=== PATIENT | female | born 1945 ===

== ENCOUNTER 2021-06-18 03:51 | Inpatient (IN) | payer OTHER ==
[~2021-06-18] VITALS: Ht 160 cm; Wt 90.2 kg
[2021-06-18 05:53] LABS: Basophils # (auto) 0 10 ^3/uL (0-0.2); Basophils % (auto) 0.4 % (0.0-2.0); Eosinophils # (auto) 0 10 ^3/uL (0-0.8); Hematocrit 38.8 % (36.0-46.0); Hemoglobin 12.8 g/dL (12.2-16.2); Lymphocytes # (auto) 0.4 10 ^3/uL (0.4-5.4); Lymphocytes % (auto) 5.9 % (10.0-50.0); Mean Corpuscular Hemoglobin 28.4 pg (28.0-32.0); Monocytes # (auto) 0.7 10 ^3/uL (0-1.3); Monocytes % (auto) 10.3 % (0.0-12.0); Neutrophils # (auto) 5.5 10 ^3/uL (1.6-8.6); Neutrophils % (auto) 83.4 % (37.0-80.0); Nucleated Red Blood Cells % 0.1 %; Red Cell Distribution Width 14.8 % (11.8-14.3); White Blood Cell 6.6 10^3/uL (4.4-10.8)
[2021-06-18] MEDS ORDERED: KETOROLAC TROMETH 30 MG/ML 1ML VIAL IV ONE (05:55)
[2021-06-18 06:09] LABS: Albumin 3.4 g/dL (3.4-5.0); Calcium 8.9 mg/dL (8.5-10.1); Magnesium 2.8 mg/dL (1.6-2.6); Potassium 4.2 mmol/L (3.5-5.1)
[2021-06-18 06:15] LABS: BUN/Creatinine Ratio 23.1; Bilirubin, Total 0.5 mg/dL (0.2-1.0); Total Protein 7.6 g/dL (6.4-8.2)
[2021-06-18] MEDS ORDERED: DEXTROSE 50% SYRINGE 50 ML IV ONE (06:27)
[2021-06-18] MEDS ORDERED: DEXTROSE (50%) 50ML SYRG IV ONE ×2 (06:45→15:15)
[2021-06-18 07:01] LABS: Urine Bacteria MANY /hpf (None Seen); Urine Blood 2+ /uL (Negative); Urine Budding Yeast OCCASIONAL /hpf (None Seen); Urine Mucus FEW (None Seen); Urine WBC 19 /hpf (0 - 5); Urine WBC Clumps PRESENT /hpf (None Seen)
[2021-06-18] MEDS ORDERED: HEPARIN SODIUM (PORCINE) 5000 UNITS/ML 1ML VIAL IV ONE (10:30)
[2021-06-18] MEDS ORDERED: MORPHINE SULFATE 4 MG/ML SYR/VIAL IV ONE (10:30)
[2021-06-18] MEDS ORDERED: ONDANSETRON HCL 4 MG/2 ML VIAL IV ONE (10:30)
[2021-06-18] MEDS ORDERED: cefTRIAXone 1GM/50ML D5W 50 ML IV ONE (11:30)
[2021-06-18] MEDS ORDERED: AZITHROMYCIN 500MG/ 250ML 250 ML IV ONE (11:30)
[2021-06-18] MEDS ORDERED: NITROGLYCERIN 0.4 MG SL TAB SL PRN (12:45)
[2021-06-18] MEDS ORDERED: ACETAMINOPHEN 325 MG TAB PO PRN (12:45)
[2021-06-18] MEDS ORDERED: D5W/SOD CHLO 0.9% 1,000 ML IV ONE (12:45)
[2021-06-18] MEDS ORDERED: HEPARIN 1,000 UNITS/ml 1ML VIAL IV ONE (13:45)
[2021-06-18] MEDS: MORPHINE SULFATE 4 MG/ML SYR/VIAL IV PRN (13:56)
[2021-06-18 14:32] LABS: INR 1.05 (0.9-1.15); Partial Thromboplastin Time 33.3 sec (23.6-33.0)
[2021-06-18] MEDS: HEPARIN DRIP/D5W 100UNITS/ML 250 ML IV SCH (14:41)
[2021-06-18] MEDS ORDERED: DEXTROSE 10% 1,000 ML IV ONE (15:15)
[2021-06-18] MEDS: CHOLECALCIFEROL (VITD3) 2,000 UNIT CAP/TAB PO SCH (16:35)
[2021-06-18] MEDS: DexAMETHasone SOD PHOS 10MG/1ML VIAL INJ IV SCH (16:35)
[2021-06-18] MEDS: HYDROcodone-ACET 5/325MG TAB PO PRN ×2 (18:04→21:45)
[2021-06-18] MEDS: ASCORBIC ACID 500 MG TAB PO SCH (21:43)
[2021-06-18] MEDS: ATORVASTATIN 20 MG TAB PO SCH (21:43)
[2021-06-18 22:36] LABS: INR 1.06 (0.9-1.15); Partial Thromboplastin Time 43.9 sec (23.6-33.0)
[2021-06-19] MEDS ORDERED: METF-372 PO (00:02)
[2021-06-19] MEDS ORDERED: GLIP5TAB12 PO (00:02)
[2021-06-19] MEDS ORDERED: LISI40TA11 PO (00:02)
[2021-06-19] MEDS ORDERED: INSU1INJ13 SC (00:02)
[2021-06-19] MEDS ORDERED: SIMV-8 PO (00:02)
[2021-06-19] MEDS ORDERED: FUR20T PO (00:02)
[2021-06-19] MEDS ORDERED: GABA800T97 PO (00:02)
[2021-06-19] MEDS ORDERED: APIX5TAB PO (00:02)
[2021-06-19] MEDS ORDERED: FENO160T8 PO (00:02)
[2021-06-19] MEDS ORDERED: TRAM50TA2 PO (00:02)
[2021-06-19] MEDS ORDERED: ATEN50TA PO (00:02)
[2021-06-19] MEDS: ONDANSETRON HCL 4 MG/2 ML VIAL IV PRN (05:40)
[2021-06-19] MEDS: MORPHINE SULFATE INJECTION 2 MG/ML SYRG IV PRN ×2 (05:40→20:53)
[2021-06-19 08:05] LABS: Basophils # (auto) 0 10 ^3/uL (0-0.2); Basophils % (auto) 0.3 % (0.0-2.0); Eosinophils # (auto) 0 10 ^3/uL (0-0.8); Hemoglobin 11.8 g/dL (12.2-16.2); Lymphocytes # (auto) 0.3 10 ^3/uL (0.4-5.4); Lymphocytes % (auto) 5.1 % (10.0-50.0); Mean Corpuscular Hemoglobin 28.9 pg (28.0-32.0); Mean Corpuscular Hgb Conc. 33.6 g/dL (32.0-36.0); Mean Corpuscular Volume 85.8 fL (80.0-100.0); Monocytes # (auto) 0.4 10 ^3/uL (0-1.3); Monocytes % (auto) 7.6 % (0.0-12.0); Neutrophils # (auto) 4.5 10 ^3/uL (1.6-8.6); Red Blood Cells 4.08 10^6/uL (4.0-5.20); Red Cell Distribution Width 14.6 % (11.8-14.3); White Blood Cell 5.2 10^3/uL (4.4-10.8)
[2021-06-19 08:22] LABS: Calcium 8.8 mg/dL (8.5-10.1); Potassium 4.7 mmol/L (3.5-5.1)
[2021-06-19 08:27] LABS: BUN/Creatinine Ratio 26.1; Bilirubin, Total 0.4 mg/dL (0.2-1.0)
[2021-06-19] MEDS: MORPHINE SULFATE 4 MG/ML SYR/VIAL IV PRN ×3 (08:30→12:56)
[2021-06-19] MEDS: cefTRIAXone 1GM/50ML D5W 50 ML IV SCH (09:12)
[2021-06-19] MEDS: DexAMETHasone SOD PHOS 10MG/1ML VIAL INJ IV SCH (10:17)
[2021-06-19] MEDS: ZINC SULFATE 220mg CAP or TAB PO SCH (10:18)
[2021-06-19] MEDS: ASCORBIC ACID 500 MG TAB PO SCH ×2 (10:18→22:31)
[2021-06-19] MEDS: ASPirin 81 mg TAB PO SCH (10:18)
[2021-06-19] MEDS: AZITHROMYCIN 500MG/ 250ML 250 ML IV SCH (10:18)
[2021-06-19] MEDS: MULTIPLE VITAMIN TAB PO SCH (10:18)
[2021-06-19] MEDS: CHOLECALCIFEROL (VITD3) 2,000 UNIT CAP/TAB PO SCH (10:19)
[2021-06-19 10:27] LABS: INR 1.05 (0.9-1.15); Partial Thromboplastin Time 60.7 sec (23.6-33.0)
[2021-06-19] MEDS: HYDROcodone-ACET 5/325MG TAB PO PRN (11:23)
[2021-06-19] MEDS: HEPARIN DRIP/D5W 100UNITS/ML 250 ML IV SCH (13:00)
[2021-06-19 14:36] LABS: INR 0.99 (0.9-1.15); Partial Thromboplastin Time 32.9 sec (23.6-33.0)
[2021-06-19] MEDS ORDERED: REMDESIVIR PER PHARMACY 0 ML IV SCH (15:00)
[2021-06-19] MEDS ORDERED: HEPARIN SODIUM (PORCINE) 5000 UNITS/ML 1ML VIAL IV ONE (15:15)
[2021-06-19] MEDS ORDERED: REMDESIVIR 200 MG in NS 210ml LOADING DOSE ADULT IV ONE (17:00)
[2021-06-19] MEDS ORDERED: DEXTROSE (50%) 50ML SYRG IV PRN (17:30)
[2021-06-19] MEDS: ACCU-CHEK COMFORT CURVE STRIP VI SCH ×2 (18:58→22:19)
[2021-06-19] MEDS: InsuLIN REG 1unit/0.01ml Soln (100units/ml) SC SCH ×2 (19:06→22:25)
[2021-06-19 20:38] LABS: INR 1.1 (0.9-1.15)
[2021-06-19 21:14] LABS: Partial Thromboplastin Time 96.3 sec (23.6-33.0)
[2021-06-19 22:20] LABS: INR 1.05 (0.9-1.15); Partial Thromboplastin Time 52.7 sec (23.6-33.0)
[2021-06-19] MEDS: ATORVASTATIN 20 MG TAB PO SCH (22:31)
[2021-06-20] MEDS: MORPHINE SULFATE INJECTION 2 MG/ML SYRG IV PRN ×4 (02:18→21:22)
[2021-06-20] MEDS: InsuLIN REG 1unit/0.01ml Soln (100units/ml) SC SCH ×4 (07:19→22:00)
[2021-06-20] MEDS: ACCU-CHEK COMFORT CURVE STRIP VI SCH ×4 (07:20→21:53)
[2021-06-20 07:43] LABS: Albumin 2.8 g/dL (3.4-5.0); Calcium 9.2 mg/dL (8.5-10.1); Potassium 4.4 mmol/L (3.5-5.1)
[2021-06-20 07:48] LABS: BUN/Creatinine Ratio 26.9; Bilirubin, Total 0.2 mg/dL (0.2-1.0); Total Protein 6.7 g/dL (6.4-8.2)
[2021-06-20] MEDS ORDERED: LORazepam 2MG/ML-1ML VIAL IV ONE (09:15)
[2021-06-20] MEDS: AZITHROMYCIN 500MG/ 250ML 250 ML IV SCH (10:00)
[2021-06-20] MEDS: cefTRIAXone 1GM/50ML D5W 50 ML IV SCH (10:06)
[2021-06-20] MEDS: CHOLECALCIFEROL (VITD3) 2,000 UNIT CAP/TAB PO SCH (10:07)
[2021-06-20] MEDS: DexAMETHasone SOD PHOS 10MG/1ML VIAL INJ IV SCH (10:07)
[2021-06-20] MEDS: ASCORBIC ACID 500 MG TAB PO SCH ×2 (10:07→21:59)
[2021-06-20] MEDS: MULTIPLE VITAMIN TAB PO SCH (10:07)
[2021-06-20] MEDS: ASPirin 81 mg TAB PO SCH (10:07)
[2021-06-20] MEDS: ZINC SULFATE 220mg CAP or TAB PO SCH (10:07)
[2021-06-20] MEDS: ONDANSETRON HCL 4 MG/2 ML VIAL IV PRN ×2 (10:09→21:23)
[2021-06-20] MEDS: CARVEDILOL 3.125 MG TAB PO SCH ×2 (11:15→21:58)
[2021-06-20 11:31] LABS: INR 1.06 (0.9-1.15); Partial Thromboplastin Time 27.1 sec (23.6-33.0)
[2021-06-20] MEDS: HEPARIN DRIP/D5W 100UNITS/ML 250 ML IV SCH (13:00)
[2021-06-20] MEDS: LORazepam 2MG/ML-1ML VIAL IV PRN (14:34)
[2021-06-20] MEDS: REMDESIVIR 100mg 100 MG in SODIUM CHL 0.9% 230 ML IV SCH (15:25)
[2021-06-20 19:36] LABS: INR 1.05 (0.9-1.15); Partial Thromboplastin Time 42.4 sec (23.6-33.0)
[2021-06-20] MEDS: ATORVASTATIN 20 MG TAB PO SCH (21:59)
[2021-06-20] MEDS: BUDESONIDE (INHALATION) 180 MCG IH IN SCH (22:17)
[2021-06-20] MEDS: ALBUTEROL SULF HFA 90MCG INH 200DOSE IN PRN (22:17)
[2021-06-20] MEDS: HYDROcodone-ACET 5/325MG TAB PO PRN (22:18)
[2021-06-21] MEDS: LORazepam 2MG/ML-1ML VIAL IV PRN ×5 (00:11→22:44)
[2021-06-21] MEDS: HEPARIN DRIP/D5W 100UNITS/ML 250 ML IV SCH (01:00)
[2021-06-21] MEDS: ONDANSETRON HCL 4 MG/2 ML VIAL IV PRN (01:55)
[2021-06-21] MEDS: MORPHINE SULFATE INJECTION 2 MG/ML SYRG IV PRN ×3 (01:55→14:55)
[2021-06-21] MEDS: BUDESONIDE (INHALATION) 180 MCG IH IN SCH ×2 (06:55→18:58)
[2021-06-21] MEDS: ACCU-CHEK COMFORT CURVE STRIP VI SCH ×4 (06:56→22:33)
[2021-06-21] MEDS: ALBUTEROL SULF HFA 90MCG INH 200DOSE IN PRN ×2 (06:58→18:58)
[2021-06-21] MEDS: InsuLIN REG 1unit/0.01ml Soln (100units/ml) SC SCH ×4 (06:59→22:44)
[2021-06-21 08:05] LABS: Albumin 2.9 g/dL (3.4-5.0); BUN/Creatinine Ratio 27.9; Potassium 4.6 mmol/L (3.5-5.1)
[2021-06-21 08:08] LABS: Bilirubin, Total 0.2 mg/dL (0.2-1.0)
[2021-06-21] MEDS: cefTRIAXone 1GM/50ML D5W 50 ML IV SCH (08:52)
[2021-06-21] MEDS: ZINC SULFATE 220mg CAP or TAB PO SCH (09:01)
[2021-06-21] MEDS: DexAMETHasone SOD PHOS 10MG/1ML VIAL INJ IV SCH (09:01)
[2021-06-21] MEDS: MULTIPLE VITAMIN TAB PO SCH (09:02)
[2021-06-21] MEDS: CHOLECALCIFEROL (VITD3) 2,000 UNIT CAP/TAB PO SCH (09:02)
[2021-06-21] MEDS: ASCORBIC ACID 500 MG TAB PO SCH ×2 (09:02→22:00)
[2021-06-21] MEDS: CARVEDILOL 3.125 MG TAB PO SCH ×2 (09:03→22:00)
[2021-06-21] MEDS: ASPirin 81 mg TAB PO SCH (09:03)
[2021-06-21] MEDS: AZITHROMYCIN 500MG/ 250ML 250 ML IV SCH (09:54)
[2021-06-21 09:59] LABS: Basophils # (auto) 0 10 ^3/uL (0-0.2); Basophils % (auto) 0.2 % (0.0-2.0); Eosinophils # (auto) 0 10 ^3/uL (0-0.8); Hematocrit 36.1 % (36.0-46.0); Hemoglobin 11.3 g/dL (12.2-16.2); Lymphocytes # (auto) 0.5 10 ^3/uL (0.4-5.4); Lymphocytes % (auto) 8.3 % (10.0-50.0); Mean Corpuscular Hemoglobin 27.5 pg (28.0-32.0); Mean Corpuscular Hgb Conc. 31.4 g/dL (32.0-36.0); Mean Corpuscular Volume 87.5 fL (80.0-100.0); Monocytes # (auto) 0.5 10 ^3/uL (0-1.3); Monocytes % (auto) 9.5 % (0.0-12.0); Neutrophils # (auto) 4.7 10 ^3/uL (1.6-8.6); Nucleated Red Blood Cells % 0.1 %; Red Blood Cells 4.12 10^6/uL (4.0-5.20); Red Cell Distribution Width 14.6 % (11.8-14.3); White Blood Cell 5.8 10^3/uL (4.4-10.8)
[2021-06-21 10:21] LABS: INR 1.13 (0.9-1.15)
[2021-06-21 10:31] LABS: Partial Thromboplastin Time > 139.0 sec (23.6-33.0)
[2021-06-21] MEDS: REMDESIVIR 100mg 100 MG in SODIUM CHL 0.9% 230 ML IV SCH (16:05)
[2021-06-21] MEDS: HALOPERIDOL LACTATE 5 MG/ML INJ VIAL IM PRN (18:40)
[2021-06-21 20:11] LABS: INR 1.16 (0.9-1.15); Partial Thromboplastin Time 68.1 sec (23.6-33.0)
[2021-06-21] MEDS: ATORVASTATIN 20 MG TAB PO SCH (22:00)
[2021-06-22] MEDS: LORazepam 2MG/ML-1ML VIAL IV PRN (06:21)
[2021-06-22] MEDS: ACCU-CHEK COMFORT CURVE STRIP VI SCH ×4 (07:06→22:08)
[2021-06-22] MEDS: InsuLIN REG 1unit/0.01ml Soln (100units/ml) SC SCH ×4 (07:26→22:08)
[2021-06-22 07:29] LABS: Albumin 3.2 g/dL (3.4-5.0); Calcium 8.9 mg/dL (8.5-10.1); Potassium 4.6 mmol/L (3.5-5.1)
[2021-06-22 07:34] LABS: BUN/Creatinine Ratio 31.1; Bilirubin, Total 0.3 mg/dL (0.2-1.0); Total Protein 6.5 g/dL (6.4-8.2)
[2021-06-22] MEDS: BUDESONIDE (INHALATION) 180 MCG IH IN SCH ×2 (10:00→22:00)
[2021-06-22 10:02] LABS: INR 1.18 (0.9-1.15); Partial Thromboplastin Time 35.6 sec (23.6-33.0)
[2021-06-22] MEDS: ASPirin 81 mg TAB PO SCH (10:40)
[2021-06-22] MEDS: ZINC SULFATE 220mg CAP or TAB PO SCH (10:40)
[2021-06-22] MEDS: CARVEDILOL 3.125 MG TAB PO SCH ×2 (10:40→22:07)
[2021-06-22] MEDS: MULTIPLE VITAMIN TAB PO SCH (10:41)
[2021-06-22] MEDS: CHOLECALCIFEROL (VITD3) 2,000 UNIT CAP/TAB PO SCH (10:41)
[2021-06-22] MEDS: ASCORBIC ACID 500 MG TAB PO SCH ×2 (10:41→22:07)
[2021-06-22] MEDS: CLOPIDOGREL BISULFATE 75 MG TAB PO SCH (10:45)
[2021-06-22] MEDS: DexAMETHasone SOD PHOS 10MG/1ML VIAL INJ IV SCH (11:07)
[2021-06-22] MEDS: cefTRIAXone 1GM/50ML D5W 50 ML IV SCH (11:07)
[2021-06-22] MEDS: REMDESIVIR 100mg 100 MG in SODIUM CHL 0.9% 230 ML IV SCH (15:25)
[2021-06-22 16:39] LABS: INR 1.21 (0.9-1.15)
[2021-06-22] MEDS: ATORVASTATIN 20 MG TAB PO SCH (22:07)
[2021-06-22] MEDS: HALOPERIDOL LACTATE 5 MG/ML INJ VIAL IM PRN (22:09)
[2021-06-22] MEDS: MORPHINE SULFATE INJECTION 2 MG/ML SYRG IV PRN ×2 (23:21→23:53)
[2021-06-23] MEDS: LORazepam 2MG/ML-1ML VIAL IV PRN (04:03)
[2021-06-23] MEDS: MORPHINE SULFATE INJECTION 2 MG/ML SYRG IV PRN ×2 (05:28→23:15)
[2021-06-23] MEDS: InsuLIN REG 1unit/0.01ml Soln (100units/ml) SC SCH ×4 (06:27→23:28)
[2021-06-23] MEDS: ACCU-CHEK COMFORT CURVE STRIP VI SCH ×4 (06:29→23:27)
[2021-06-23] MEDS: ALBUTEROL SULF HFA 90MCG INH 200DOSE IN PRN ×2 (06:46→19:26)
[2021-06-23] MEDS: BUDESONIDE (INHALATION) 180 MCG IH IN SCH ×2 (06:46→18:31)
[2021-06-23 07:54] LABS: Albumin 3.2 g/dL (3.4-5.0); Calcium 9.1 mg/dL (8.5-10.1); Potassium 4.6 mmol/L (3.5-5.1)
[2021-06-23 07:59] LABS: BUN/Creatinine Ratio 29.3; Bilirubin, Total 0.4 mg/dL (0.2-1.0); Total Protein 6.3 g/dL (6.4-8.2)
[2021-06-23] MEDS: cefTRIAXone 1GM/50ML D5W 50 ML IV SCH (09:00)
[2021-06-23] MEDS: DexAMETHasone SOD PHOS 10MG/1ML VIAL INJ IV SCH (10:00)
[2021-06-23] MEDS ORDERED: ENOXAPARIN SOD 40 MG/0.4 ML SYRINGE SC SCH (10:00)
[2021-06-23] MEDS: CLOPIDOGREL BISULFATE 75 MG TAB PO SCH (10:00)
[2021-06-23] MEDS: MULTIPLE VITAMIN TAB PO SCH (10:00)
[2021-06-23] MEDS: CARVEDILOL 3.125 MG TAB PO SCH ×2 (10:00→23:26)
[2021-06-23] MEDS: ZINC SULFATE 220mg CAP or TAB PO SCH (10:00)
[2021-06-23] MEDS: ASPirin 81 mg TAB PO SCH (10:00)
[2021-06-23] MEDS: ASCORBIC ACID 500 MG TAB PO SCH ×2 (10:00→23:31)
[2021-06-23] MEDS: CHOLECALCIFEROL (VITD3) 2,000 UNIT CAP/TAB PO SCH (10:00)
[2021-06-23] MEDS: REMDESIVIR 100mg 100 MG in SODIUM CHL 0.9% 230 ML IV SCH (15:34)
[2021-06-23 16:08] LABS: Folate (Folic Acid) 9.73 ng/mL (5.38-24)
[2021-06-23] MEDS ORDERED: DEXTROSE (50%) 50ML SYRG IV PRN (23:00)
[2021-06-23] MEDS ORDERED: HYDROcodone-ACET 5/325MG TAB PO PRN (23:00)
[2021-06-23] MEDS ORDERED: ACETAMINOPHEN 325 MG TAB PO PRN (23:00)
[2021-06-23] MEDS ORDERED: ONDANSETRON HCL 4 MG/2 ML VIAL IV PRN (23:00)
[2021-06-23] MEDS ORDERED: HALOPERIDOL LACTATE 5 MG/ML INJ VIAL IM PRN (23:00)
[2021-06-23] MEDS ORDERED: MORPHINE SULFATE INJECTION 2 MG/ML SYRG IV PRN (23:00)
[2021-06-23] MEDS: ATORVASTATIN 20 MG TAB PO SCH (23:26)
[2021-06-24 00:26] VITALS: BP 128/100
[2021-06-24 04:48] VITALS: BP 144/78
[2021-06-24] MEDS: InsuLIN REG 1unit/0.01ml Soln (100units/ml) SC SCH ×4 (06:18→21:47)
[2021-06-24] MEDS: BUDESONIDE (INHALATION) 180 MCG IH IN SCH ×2 (06:55→19:29)
[2021-06-24] MEDS ORDERED: InsuLIN REG 1unit/0.01ml Soln (100units/ml) SC SCH (07:00)
[2021-06-24 07:51] LABS: Potassium 4.2 mmol/L (3.5-5.1)
[2021-06-24 07:59] LABS: Albumin 3.4 g/dL (3.4-5.0); BUN/Creatinine Ratio 31.9; Bilirubin, Total 0.6 mg/dL (0.2-1.0); Calcium 9.7 mg/dL (8.5-10.1); Total Protein 6.4 g/dL (6.4-8.2)
[2021-06-24 09:00] VITALS: BP 150/82
[2021-06-24] MEDS: cefTRIAXone 1GM/50ML D5W 50 ML IV SCH (09:00)
[2021-06-24] MEDS ORDERED: ASCORBIC ACID 500 MG TAB PO SCH (10:00)
[2021-06-24] MEDS ORDERED: CARVEDILOL 3.125 MG TAB PO SCH (10:00)
[2021-06-24] MEDS: MULTIPLE VITAMIN TAB PO SCH (10:05)
[2021-06-24] MEDS: DexAMETHasone SOD PHOS 10MG/1ML VIAL INJ IV SCH (10:05)
[2021-06-24] MEDS: ZINC SULFATE 220mg CAP or TAB PO SCH (10:05)
[2021-06-24] MEDS: ASPirin 81 mg TAB PO SCH (10:05)
[2021-06-24] MEDS: ENOXAPARIN SOD 40 MG/0.4 ML SYRINGE SC SCH (10:06)
[2021-06-24] MEDS: CARVEDILOL 3.125 MG TAB PO SCH ×2 (10:06→21:42)
[2021-06-24] MEDS: ASCORBIC ACID 500 MG TAB PO SCH ×2 (10:06→21:42)
[2021-06-24] MEDS: CLOPIDOGREL BISULFATE 75 MG TAB PO SCH (10:06)
[2021-06-24] MEDS: CHOLECALCIFEROL (VITD3) 2,000 UNIT CAP/TAB PO SCH (10:06)
[2021-06-24] MEDS: ACCU-CHEK COMFORT CURVE STRIP VI SCH ×3 (11:41→21:54)
[2021-06-24 12:35] VITALS: BP 132/102
[2021-06-24] MEDS: MORPHINE SULFATE INJECTION 2 MG/ML SYRG IV PRN ×3 (13:50→22:36)
[2021-06-24] MEDS ORDERED: HALOPERIDOL LACTATE 5 MG/ML INJ VIAL IV ONE (15:00)
[2021-06-24 17:00] VITALS: BP 184/95
[2021-06-24] MEDS ORDERED: LORazepam 2MG/ML-1ML VIAL IV ONE (20:00)
[2021-06-24] MEDS: NITROGLYCERIN 0.4 MG SL TAB SL PRN ×2 (20:23→20:53)
[2021-06-24] MEDS: ATORVASTATIN 20 MG TAB PO SCH (21:42)
[2021-06-24 22:00] VITALS: BP 135/84
[2021-06-24] MEDS ORDERED: INSULIN LANTUS (GLARGINE) 1 /0.01ml (100units/ml) SC SCH (22:00)
[2021-06-24] MEDS ORDERED: ATORVASTATIN 20 MG TAB PO SCH (22:00)
[2021-06-24] MEDS: ALBUTEROL SULF HFA 90MCG INH 200DOSE IN PRN (23:32)
[2021-06-25 04:30] VITALS: BP 124/89
[2021-06-25] MEDS: MORPHINE SULFATE INJECTION 2 MG/ML SYRG IV PRN ×3 (06:26→17:19)
[2021-06-25] MEDS: InsuLIN REG 1unit/0.01ml Soln (100units/ml) SC SCH ×3 (06:26→17:00)
[2021-06-25] MEDS: ACCU-CHEK COMFORT CURVE STRIP VI SCH ×3 (06:27→17:00)
[2021-06-25 07:04] LABS: Eosinophils # (auto) 0 10 ^3/uL (0-0.8); Hemoglobin 10.9 g/dL (12.2-16.2); Lymphocytes # (auto) 1.1 10 ^3/uL (0.4-5.4); White Blood Cell 15.6 10^3/uL (4.4-10.8)
[2021-06-25 07:06] LABS: Basophils # (auto) 0.1 10 ^3/uL (0-0.2); Basophils % (auto) 0.4 % (0.0-2.0); Eosinophils % (auto) 0.2 % (0.0-7.0); Hematocrit 31.8 % (36.0-46.0); Lymphocytes % (auto) 7.2 % (10.0-50.0); Mean Corpuscular Hemoglobin 29.4 pg (28.0-32.0); Mean Corpuscular Hgb Conc. 34.3 g/dL (32.0-36.0); Mean Corpuscular Volume 85.8 fL (80.0-100.0); Monocytes # (auto) 1.2 10 ^3/uL (0-1.3); Monocytes % (auto) 7.7 % (0.0-12.0); Neutrophils # (auto) 13.2 10 ^3/uL (1.6-8.6); Neutrophils % (auto) 84.5 % (37.0-80.0); Nucleated Red Blood Cells % 0.3 %; Red Blood Cells 3.71 10^6/uL (4.0-5.20); Red Cell Distribution Width 14.3 % (11.8-14.3)
[2021-06-25 07:21] LABS: Calcium 9.3 mg/dL (8.5-10.1); Magnesium 3.1 mg/dL (1.6-2.6); Potassium 4.7 mmol/L (3.5-5.1)
[2021-06-25 07:24] LABS: BUN/Creatinine Ratio 36.2
[2021-06-25 09:30] VITALS: BP 138/69
[2021-06-25] MEDS: BUDESONIDE (INHALATION) 180 MCG IH IN SCH ×2 (09:32→19:18)
[2021-06-25] MEDS: ALBUTEROL SULF HFA 90MCG INH 200DOSE IN PRN ×2 (09:32→19:18)
[2021-06-25] MEDS: DexAMETHasone SOD PHOS 10MG/1ML VIAL INJ IV SCH (09:42)
[2021-06-25] MEDS: ASPirin 81 mg TAB PO SCH (09:42)
[2021-06-25] MEDS: cefTRIAXone 1GM/50ML D5W 50 ML IV SCH (09:42)
[2021-06-25] MEDS: CLOPIDOGREL BISULFATE 75 MG TAB PO SCH (09:43)
[2021-06-25] MEDS: CARVEDILOL 3.125 MG TAB PO SCH (09:43)
[2021-06-25] MEDS: ENOXAPARIN SOD 40 MG/0.4 ML SYRINGE SC SCH (09:43)
[2021-06-25] MEDS: MULTIPLE VITAMIN TAB PO SCH (09:44)
[2021-06-25] MEDS: CHOLECALCIFEROL (VITD3) 2,000 UNIT CAP/TAB PO SCH (09:44)
[2021-06-25] MEDS: ASCORBIC ACID 500 MG TAB PO SCH (09:44)
[2021-06-25] MEDS: ZINC SULFATE 220mg CAP or TAB PO SCH (09:44)
[2021-06-25 13:00] VITALS: BP 138/66
[2021-06-25 15:24] VITALS: BP 146/80
[2021-06-25] MEDS ORDERED: LORazepam 2MG/ML-1ML VIAL IV ONE (16:45)
[2021-06-25 17:23] VITALS: BP 137/80
[2021-06-25 17:49] VITALS: BP 137/80
== END 2021-06-25 19:36 | DRG 871 ==
LOC: ER 03:51 → EDBD 03:51 → TELE 12:44 → TELE-E-ADS 06-23 21:54
PROVIDERS: ADMIT Internal Medicine; ATTEND Internal Medicine
PROC: XW033E5 Introduction of Remdesivir Anti-infective into Peripheral Vein, Percutaneous Approach, New Technology Group 5 (ICD-10-PCS; principal; 2021-06-19)
PROC: 05HD33Z Insertion of Infusion Device into Right Cephalic Vein, Percutaneous Approach (ICD-10-PCS; 2021-06-23)
PROC: B54MZZA Ultrasonography of Right Upper Extremity Veins, Guidance (ICD-10-PCS; 2021-06-23)
DX: A41.51 Sepsis due to Escherichia coli [E. coli] (principal); U07.1 COVID-19; J12.82 Pneumonia due to coronavirus disease 2019; J96.01 Acute respiratory failure with hypoxia; N17.0 Acute kidney failure with tubular necrosis; I21.4 Non-ST elevation (NSTEMI) myocardial infarction; G92.9 Unspecified toxic encephalopathy; N39.0 Urinary tract infection, site not specified; E11.649 Type 2 diabetes mellitus with hypoglycemia without coma; N18.9 Chronic kidney disease, unspecified; R32 Unspecified urinary incontinence; E66.01 Morbid (severe) obesity due to excess calories; E78.5 Hyperlipidemia, unspecified; F41.9 Anxiety disorder, unspecified; I13.10 Hypertensive heart and chronic kidney disease without heart failure, with stage 1 through stage 4 chronic kidney disease, or unspecified chronic kidney disease; Z96.659 Presence of unspecified artificial knee joint; Z78.1 Physical restraint status; Z79.82 Long term (current) use of aspirin; Z68.35 Body mass index [BMI] 35.0-35.9, adult; Z79.01 Long term (current) use of anticoagulants; Z79.899 Other long term (current) drug therapy; Z82.0 Family history of epilepsy and other diseases of the nervous system; Z82.49 Family history of ischemic heart disease and other diseases of the circulatory system; Z86.718 Personal history of other venous thrombosis and embolism
CPT/HCPCS: 36415; 70450; 71045; 80048; 80053; 81001; 82607; 82746; 82962; 83036; 83735; 84443; 84484; 85025; 85379; 85610; 85730; 87040; 87086; 87088; 87186; 87426; 92610; 93005; 93306; 94640; 96365; 96375; 97110; 97163; 97530; 99291; G0378; J0696; J1100; J1815; J1885; J2405